=== PATIENT | female | born 1960 | race African-American/Black ===

== ENCOUNTER 2017-09-26 22:17 | Emergency (ER) | payer BC, SELFPAY ==
[2017-09-26 22:24] VITALS: BP 152/92; PULSE 94; RESP 18; TEMP 37.1; O2SAT 98; BMI 26.7
--- NOTE | 2017-09-26 23:35 | HMH.EDSKAF ---
ED Disposition Clinical Impression: Rash, Dermatophytosis Disposition: Home, Self-Care Condition on Discharge: Good Instructions: DI for Itching Additional Instructions: use benadryl and hold creams and call pcp in am Prescriptions: Mupirocin Calcium [Bactroban 2% Cream 15gm] 1 applicatio TP BID #1 tube Referrals: John Hercules MD [Primary Care Provider] - - Critical Care Critical Care Time: No Attestation: On 09/26/17, the high probability of a clinically significant, sudden or life threatening deterioration of the following system(s) required my full and direct attention, intervention and personal management. The time I documented below is in addition to time spent performing reported procedures but includes the following listed in this critical care notation. Medical Decision Making - Medical Records Medical records reviewed: Yes: I reviewed the patient's medical records. Vital Signs: 09/26/17 22:24 Temperature 98.7 F Temperature Source Oral Pulse Rate [Brachial] 94 H Respiratory Rate 18 Blood Pressure [Right Arm] 152/92 Blood Pressure Mean [Right Arm] 112 Blood Pressure Source [Right Arm] Automatic Cuff Blood Pressure Position [Right Arm] Supine 02 Sat by Pulse Oximetry 98 - Lucio Inquiry Pt receiving controlled substance: No Skin/Abscess/FB HPI - General Chief complaint: Skin/Abscess/Foreign Body Stated complaint: rash Time Seen by Provider: 09/26/17 23:35 Mode of Arrival: Ambulatory Source of Information: Patient, Medical Record Limitations: No Limitations Description of Symptoms (Recalled from ER Triage Doc. by RN): C/O RASH ALL OVER, AND BLISTER BETWEEN [address] RD AND 4 TH DIGIT, REPORTS TOP LIPS ARE. SWELLING - History of Present Illness HPI narrative: pt has area tween 3/4 toe with otc rx and dev rash tonight and itching to trunk and swollen upper lip complaint: rash Onset (ago): day(s) Tetanus up to date: unsure Location: back, R foot Severity: moderate Quality: pruritic Treatments prior to arrival: OTC topical medication - Related Data Previous Rx's Medication Instructions Recorded Mupirocin Calcium [Bactroban 2% 1 applicatio TP BID #1 tube 09/26/17 Cream 15gm] Allergies Allergy/AdvReac Type Severity Reaction Status Date / Time INGREDIENT: NO KNOWN - NO Allergy Unknown Uncoded 09/10/17 14:47 KNOWN DRUG ALLERGY [facility] History I have reviewed the patient's past medical history: Yes ROS Obtained: Yes All systems reviewed & no additional complaints except as noted - Constitutional Denies fever(s) - Eyes Denies change in vision - Respiratory Denies cough - Genitourinary Denies blood in urine - Musculoskeletal Denies joint pain - Integumentary/Breasts Reports rash, Reports other (no oral lesions and airway ok ), Denies change in hair, Denies nail changes - Neurologic Denies seizure-like activity - Psychiatric Denies anxiety - Allergic/Immunologic Reports lip swelling, Denies itchy eyes, Denies throat swelling, Denies tongue swelling, Denies hives Physical Exam - General General appearance: alert, in no apparent distress - Head Head exam: normocephalic - Eye Eye exam: Present: PERRL, EOMI - ENT ENT exam: Present: normal oropharynx - Neck Neck exam: Present: full ROM - Respiratory Respiratory exam: Absent: respiratory distress - Cardiovascular Cardiovascular exam: Present: regular rate - Extremities Exam Extremities exam: Present: full ROM - Neurological Exam Neurological exam: Present: oriented X3, CN II-XII intact - Psychiatric Psychiatric exam: Present: normal affect - Skin Skin exam: Present: rash, other (nonspecific rash tween toes doubt tinea and has rash to ext possible hives )
--- NOTE | 2017-09-26 23:39 | ED_ITS ---
ED Disposition Clinical Impression: Rash, Dermatophytosis Disposition: Home, Self-Care Condition on Discharge: Good Instructions: DI for Itching Additional Instructions: use benadryl and hold creams and call pcp in am Prescriptions: Mupirocin Calcium [Bactroban 2% Cream 15gm] 1 applicatio TP BID #1 tube Referrals: John Hercules MD [Primary Care Provider] - - Critical Care Critical Care Time: No Attestation: On 09/26/17, the high probability of a clinically significant, sudden or life threatening deterioration of the following system(s) required my full and direct attention, intervention and personal management. The time I documented below is in addition to time spent performing reported procedures but includes the following listed in this critical care notation. Medical Decision Making - Medical Records Medical records reviewed: Yes: I reviewed the patient's medical records. Vital Signs: 09/26/17 22:24 Temperature 98.7 F Temperature Source Oral Pulse Rate [Brachial] 94 H Respiratory Rate 18 Blood Pressure [Right Arm] 152/92 Blood Pressure Mean [Right Arm] 112 Blood Pressure Source [Right Arm] Automatic Cuff Blood Pressure Position [Right Arm] Supine 02 Sat by Pulse Oximetry 98 - Lucio Inquiry Pt receiving controlled substance: No Skin/Abscess/FB HPI - General Chief complaint: Skin/Abscess/Foreign Body Stated complaint: rash Time Seen by Provider: 09/26/17 23:35 Mode of Arrival: Ambulatory Source of Information: Patient, Medical Record Limitations: No Limitations Description of Symptoms (Recalled from ER Triage Doc. by RN): C/O RASH ALL OVER , AND BLISTER BETWEEN [address] AND [address] DIGIT, REPORTS TOP LIPS ARE. SWELLING - History of Present Illness HPI narrative: pt has area tween 3/4 toe with otc rx and dev rash tonight and itching to trunk and swollen upper lip complaint: rash Onset (ago): day(s) Tetanus up to date: unsure Location: back, R foot Severity: moderate Quality: pruritic Treatments prior to arrival: OTC topical medication - Related Data Previous Rx's Medication Instructions Recorded Mupirocin Calcium [Bactroban 2% 1 applicatio TP BID #1 tube 09/26/17 Cream 15gm] Allergies Allergy/AdvReac Type Severity Reaction Status Date / Time INGREDIENT: NO KNOWN - NO Allergy Unknown Uncoded 09/10/17 14:47 KNOWN DRUG ALLERGY [facility] History I have reviewed the patient's past medical history: Yes ROS Obtained: Yes All systems reviewed & no additional complaints except as noted - Constitutional Denies fever(s) - Eyes Denies change in vision - Respiratory Denies cough - Genitourinary Denies blood in urine - Musculoskeletal Denies joint pain - Integumentary/Breasts Reports rash, Reports other (no oral lesions and airway ok ), Denies change in hair, Denies nail changes - Neurologic Denies seizure-like activity - Psychiatric Denies anxiety - Allergic/Immunologic Reports lip swelling, Denies itchy eyes, Denies throat swelling, Denies tongue swelling, Denies hives Physical Exam - General General appearance: alert, in no apparent distress - Head Head exam: normocephalic - Eye Eye exam: Present: PERRL, EOMI - ENT ENT exam: Present: normal oropharynx
== END 2017-09-27 00:04 | disposition home or self-care (01) ==
PROVIDERS: Emergency Provider Emergency Medicine; PCP Family Medicine
DX: B35.1 Tinea unguium (principal); B35.8 Other dermatophytoses
CPT/HCPCS: 99282